=== PATIENT | male | born 1970 | race Caucasian/White ===

== ENCOUNTER 2016-11-09 18:09 | Emergency (ER) | payer SELFPAY ==
[~2016-11-09] VITALS: Ht 180.3 cm; Wt 101.0 kg
[~2016-11-09 18:09] MED LIST: ALBU6.7H INH; GUAI100S6 PO; LEVE500 PO; MEDR4PAK3 PO; OXCA600 PO; ZITH250T PO
[2016-11-09 18:13] VITALS: BP 141/87; PULSE 84; RESP 16; TEMP 98.3; O2SAT 97
[2016-11-09] MEDS ORDERED: LEVE500T8 PO (18:36)
[2016-11-09] MEDS ORDERED: OXCA600T PO (18:36)
--- NOTE | 2016-11-09 18:37 | PD ---
HPI Chief Complaint: Complaint Time Seen by Provider: 18:36 Travel History International Travel<30 days: No Contact w/Intl Traveler<30days: No Traveled to known affect area: No History of Present Illness HPI 46-year-old male with history of seizures, presents to the ER today because he states that he saw blood in his urine this morning and then had dark colored urine this afternoon. He states that has since cleared. He denies any dysuria , abdominal pain, fevers, or any other symptoms. Modifying Factors: None Associated Signs & Symptoms: Blood in the urine Risk Factors: None PFSH Past Medical History Blood Disorders: No Anxiety: Yes Depression: Yes Cancer: No Cardiovascular Problems: No Diminished Hearing: No Genitourinary: No Headaches: Yes (MIGRAINES) Immune Disorder: No Musculoskeletal: No Neurologic: Yes Reproductive: No Immunizations Current: Yes Migraines: Yes Seizures: Yes Tetanus Vaccination: Unknown Influenza Vaccination: No Past Surgical History Pacemaker: No Tonsillectomy: Yes Other Surgery: Yes (TONSIL REMOVED 1975) Social History Alcohol Use: No Tobacco Use: Yes (CIGARETTES AND SNUFF.) Substance Use: No Allergies-Medications (Allergen,Severity, Reaction): Coded Allergies: Vancomycin (Verified Allergy, Mild, Itching, 11/09/16) Reported Meds & Prescriptions Reported Meds & Active Scripts Active Reported Levetiracetam 500 Mg Tab 500 Mg PO BID Oxcarbazepine 600 Mg Tab 600 Mg PO BID Review of Systems Except as stated in HPI: all other systems reviewed are Neg Physical Exam Narrative GENERAL: Well-developed middle age white male patient currently none acute distress. Awake and oriented 3. SKIN: Focused skin assessment warm/dry. HEAD: Atraumatic. Normocephalic. EYES: Pupils equal and round. No scleral icterus. No injection or drainage. ENT: No nasal bleeding or discharge. Mucous membranes pink and moist. NECK: Trachea midline. No JVD. CARDIOVASCULAR: Regular rate and rhythm. No murmur appreciated. RESPIRATORY: No accessory muscle use. Clear to auscultation. Breath sounds equal bilaterally. GASTROINTESTINAL: Abdomen soft, non-tender, nondistended. Hepatic and splenic margins not palpable. MUSCULOSKELETAL: No obvious deformities. No clubbing. No cyanosis. No edema. NEUROLOGICAL: Awake and alert. No obvious cranial nerve deficits. Motor grossly within normal limits. Normal speech. PSYCHIATRIC: Appropriate mood and affect; insight and judgment normal. Data Data Last Documented VS Vital Signs Date Time Temp Pulse Resp B/P Pulse Ox O2 Delivery O2 Flow Rate FiO2 11/09/16 18:32 82 16 11/09/16 18:13 98.3 141/87 97 Orders Urinalysis - C+S If Indicated (11/09/16 18:26) Urine Culture (11/09/16 18:32) Labs Laboratory Tests Test 11/09/16 18:32 Urine Color YELLOW Urine Turbidity CLOUDY Urine pH 5.5 Urine Specific [place] 1.035 Urine Protein TRACE mg/dL Urine Glucose (UA) NEG mg/dL Urine Ketones NEG mg/dL Urine Occult Blood LARGE Urine Nitrite NEG Urine Bilirubin NEG Urine Leukocyte Esterase NEG Urine RBC 50-99 /hpf Urine WBC 9-14 /hpf Urine Squamous Epithelial 0-5 /hpf Cells Urine Mucus MANY /lpf Microscopic Urinalysis Comment CULTURE INDICATED MDM Medical Decision Making Medical Screen Exam Complete: Yes Emergency Medical Condition: Yes Medical Record Reviewed: Yes Differential Diagnosis Blood in the urinehematuria versus UTI Narrative Course UA shows blood and white blood cells indicative of UTI. My plan would be to treat him for his UTI and have him follow-up with primary care physician. Return for any worsening in symptoms as necessary. The plan has been discussed with the patient and he states understanding. Diagnosis Primary Impression: UTI (urinary tract infection) Med/Other Pt SpecificInfo: Prescription(s) given Scripts Sulfamethoxazole-Trimethoprim (Bactrim DS)800-160 Mg Tab1 Tab PO BID #14 TAB Ref 0 Prov:Celena Swain MD 11/09/16 Disposition: 01 DISCHARGE HOME Condition: Stable Celena Swain MD Nov 09, 2016 18:37
[2016-11-09 18:38] LABS: BLOOD, URINE LARGE (NEG); GLUCOSE,URINE NEG (NEG); KETONE, URINE NEG (NEG); NITRITE,URINE NEG (NEG); PH, URINE 5.5 (5.0-8.5)
[2016-11-09 18:56] LABS: URINE COLOR YELLOW (YELLW/STRAW)
[2016-11-09 18:57] LABS: MUCUS URINE MANY /lpf (OCC)
[2016-11-09 18:58] LABS: COMMENT (UR) CULTURE INDICATED; CULTURE IF INDICATED CULTURE INDICATED; SQUAMOUS EPITHELIAL CELL URINE 0-5 /hpf (0-5)
[2016-11-09] MEDS ORDERED: BACT800T5 PO (19:03)
[2016-11-09 19:47] VITALS: BP 136/76
[2016-11-10] MEDS ORDERED: IBUP800T23 PO (03:36)
== END 2016-11-09 19:50 | disposition home or self-care (01) ==
LOC: PHED 18:09
DX: N39.0 Urinary tract infection, site not specified (principal); R31.9 Hematuria, unspecified; Z72.0 Tobacco use
CPT/HCPCS: 81001; 87086; 99283

== ENCOUNTER 2016-11-10 00:52 | Emergency (ER) | payer SELFPAY ==
[~2016-11-10] VITALS: Ht 177.8 cm; Wt 102.6 kg
[~2016-11-10 00:52] MED LIST changes: +BACT800T5 PO; +LEVE500T8 PO; +OXCA600T PO
[2016-11-10 00:57] VITALS: BP 144/86; PULSE 86; RESP 22; TEMP 98.3; O2SAT 98
[2016-11-10] MEDS ORDERED: SODIUM CHLOR 0.9% 1000 ML INJ 1,000 ML IV ONE (02:06)
[2016-11-10] MEDS ORDERED: ONDANSETRON HCL 4 MG/2 ML VIAL IVP ONE (02:15)
[2016-11-10] MEDS ORDERED: KETOROLAC TROMETHAMINE 30 MG/ML (IVP) VIAL IVP ONE (02:15)
[2016-11-10] MEDS ORDERED: HYDROmorphone HCL PF 1 MG/ML VIAL IVS ONE (02:15)
[2016-11-10] MEDS ORDERED: SODIUM CHLORIDE 0.9% FLUSH 10 ML FLUSH IVF PRN (02:15)
[2016-11-10 02:41] LABS: BLOOD, URINE LARGE (NEG); GLUCOSE,URINE NEG (NEG); KETONE, URINE TRACE mg/dL (NEG); NITRITE,URINE NEG (NEG)
[2016-11-10 02:42] LABS: AUTOMATED NEUTROPHIL # 10.7 TH/MM3 (1.8-7.7); BASOPHIL # 0.1 TH/MM3 (0-0.2); BASOPHIL % 0.9 % (0.0-2.0); EOSINOPHIL % 0.3 % (0.0-4.0); HEMATOCRIT 43.9 % (39.0-51.0); LYMPH % 10.3 % (9.0-44.0); LYMPHOCYTE # 1.3 TH/MM3 (1.0-4.8); MEAN CELL VOLUME 83.2 FL (80.0-100.0); MEAN CORPUSCULAR HEMOGLOBIN 28.5 PG (27.0-34.0); MEAN CORPUSCULAR HGB CONC 34.3 % (32.0-36.0); MONO % 7.4 % (0.0-8.0); NEUT % 81.1 % (16.0-70.0); PLATELET COUNT 198 TH/MM3 (150-450); RED BLOOD COUNT 5.28 MIL/MM3 (4.50-5.90); RED CELL DISTRIBUTION WIDTH 12.8 % (11.6-17.2); WHITE BLOOD COUNT 13.1 TH/MM3 (4.0-11.0)
--- NOTE | 2016-11-10 02:42 | PD ---
HPI Chief Complaint: Complaint Time Seen by Provider: 01:58 Travel History International Travel<30 days: No Contact w/Intl Traveler<30days: No Traveled to known affect area: No History of Present Illness HPI The patient is a 46-year-old male that was seen on the previous shift yesterday , around 6:30 to 7 PM [facility]. At that time he had very little pain and denied any dysuria, fever, nausea, vomiting or diarrhea. He comes in tonight was severe right sided pain and a feeling that he cannot urinate. He urinates small amounts of urine and it is bloody. He feels like his bladder is distended and clinically it is not distended at all. He does not have any testicular swelling or pain. He was prescribed Bactrim DS and purchase the medication and took one tablet so far. The patient states he sweats profusely at work and has lost considerable weight and has a hard time avoiding dehydration at work. PFSH Past Medical History Blood Disorders: No Anxiety: Yes Depression: Yes Cancer: No Cardiovascular Problems: No Diminished Hearing: No Genitourinary: No Headaches: Yes (MIGRAINES) Immune Disorder: No Musculoskeletal: No Neurologic: Yes Reproductive: No Immunizations Current: Yes Migraines: Yes Seizures: Yes ?: Not Past Surgical History Pacemaker: No Tonsillectomy: Yes Other Surgery: Yes (TONSIL REMOVED 1975) Social History Alcohol Use: No Tobacco Use: Yes (CIGARETTES AND SNUFF.) Substance Use: No Allergies-Medications (Allergen,Severity, Reaction): Coded Allergies: Vancomycin (Verified Allergy, Mild, Itching, 11/10/16) Reported Meds & Prescriptions Reported Meds & Active Scripts Active Bactrim DS (Sulfamethoxazole-Trimethoprim) 800-160 Mg Tab 1 Tab PO BID Reported Levetiracetam 500 Mg Tab 500 Mg PO BID Oxcarbazepine 600 Mg Tab 600 Mg PO BID Review of Systems Except as stated in HPI: all other systems reviewed are Neg Physical Exam Narrative GENERAL: The patient is alert, oriented 3 in moderate to severe distress with his discomfort and right UVJ area discomfort. His vital signs show blood pressure 144/86 but otherwise are normal. SKIN: Focused skin assessment warm/dry. HEAD: Atraumatic. Normocephalic. EYES: Pupils equal and round. No scleral icterus. No injection or drainage. ENT: No nasal bleeding or discharge. Mucous membranes pink and moist. NECK: Trachea midline. No JVD. CARDIOVASCULAR: Regular rate and rhythm. No murmur appreciated. RESPIRATORY: No accessory muscle use. Clear to auscultation. Breath sounds equal bilaterally. GASTROINTESTINAL: Abdomen soft, with tenderness to direct palpation in the right suprapubic area, nondistended. Hepatic and splenic margins not palpable. The bladder does not appear to be distended clinically. MUSCULOSKELETAL: No obvious deformities. No clubbing. No cyanosis. No edema. NEUROLOGICAL: Awake and alert. No obvious cranial nerve deficits. Motor grossly within normal limits. Normal speech. PSYCHIATRIC: Appropriate mood and affect; insight and judgment normal. Data Data Last Documented VS Vital Signs Date Time Temp Pulse Resp B/P Pulse Ox O2 Delivery O2 Flow Rate FiO2 11/10/16 00:57 98.3 86 22 144/86 98 Orders Urinalysis - C+S If Indicated (11/10/16 02:06) Ct Abd/Pel W/O Iv Contrast (11/10/16 02:06) Ecg Monitoring (11/10/16 02:06) Iv Access Insert/Monitor (11/10/16 02:06) Ketorolac Inj (Toradol Inj) (11/10/16 02:15) Ondansetron Inj (Zofran Inj) (11/10/16 02:15) Sodium Chloride 0.9% Flush (Ns Flush) (11/10/16 02:15) Sodium Chlor 0.9% 1000 Ml Inj (Ns 1000 M (11/10/16 02:06) Hydromorphone Pf Inj (Dilaudid Pf Inj) (11/10/16 02:15) Complete Blood Count With Diff (11/10/16 02:28) Comprehensive Metabolic Panel (11/10/16 02:28) Labs Laboratory Tests Test 11/10/16 02:10 White Blood Count 13.1 TH/MM3 Red Blood Count 5.28 MIL/MM3 Hemoglobin 15.1 GM/DL Hematocrit 43.9 % Mean Corpuscular Volume 83.2 FL Mean Corpuscular Hemoglobin 28.5 PG Mean Corpuscular Hemoglobin 34.3 % Concent Red Cell Distribution Width 12.8 % Platelet Count 198 TH/MM3 Mean Platelet Volume 9.1 FL Neutrophils (%) (Auto) 81.1 % Lymphocytes (%) (Auto) 10.3 % Monocytes (%) (Auto) 7.4 % Eosinophils (%) (Auto) 0.3 % Basophils (%) (Auto) 0.9 % Neutrophils # (Auto) 10.7 TH/MM3 Lymphocytes # (Auto) 1.3 TH/MM3 Monocytes # (Auto) 1.0 TH/MM3 Eosinophils # (Auto) 0.0 TH/MM3 Basophils # (Auto) 0.1 TH/MM3 CBC Comment AUTO DIFF Differential Comment AUTO DIFF CONFIRMED Platelet Estimate NORMAL Platelet Morphology Comment NORMAL Red Cell Morphology Comment NORMAL Urine Color NELSON Urine Turbidity CLEAR Urine pH 6.0 Urine Specific [place] GREATER THAN 1.035 Urine Protein TRACE mg/dL Urine Glucose (UA) NEG mg/dL Urine Ketones TRACE mg/dL Urine Occult Blood LARGE Urine Nitrite NEG Urine Bilirubin NEG Urine Leukocyte Esterase NEG Urine RBC 20-24 /hpf Urine WBC 0-2 /hpf Urine Squamous Epithelial 0-5 /hpf Cells Urine Calcium Oxalate Crystals MOD /hpf Urine Bacteria NONE /hpf Microscopic Urinalysis Comment CULT NOT INDICATED Sodium Level 140 MEQ/L Potassium Level 3.6 MEQ/L Chloride Level 105 MEQ/L Carbon Dioxide Level 27.5 MEQ/L Anion Gap 8 MEQ/L Blood Urea Nitrogen 16 MG/DL Creatinine 1.10 MG/DL Estimat Glomerular Filtration 72 ML/MIN Rate Random Glucose 133 MG/DL Calcium Level 8.7 MG/DL Total Bilirubin 0.3 MG/DL Aspartate Amino Transf 15 U/L (AST/SGOT) Alanine Aminotransferase 21 U/L (ALT/SGPT) Alkaline Phosphatase 99 U/L Total Protein 7.5 GM/DL Albumin 4.0 GM/DL MDM Medical Decision Making Medical Screen Exam Complete: Yes Emergency Medical Condition: Yes Medical Record Reviewed: Yes Interpretation(s) The CBC shows a white count of 13,100 but is otherwise unremarkable. Incidentally noted is a hemoglobin of 15.1 and hematocrit of 43.9, there probably is some beginning hemoconcentration. The urine shows nelson color, clear to her bed at a, specific gravity of greater than 1.035, trace protein, trace ketones, large occult blood, 20-24 red cells with only 0-2 white cells and moderate calcium oxalate crystals and culture is not indicated. The complete metabolic profile shows a glucose of 133 but is otherwise normal. The CT abdomen/pelvis without IV contrast shows a 2 mm stone at the right ureterovesical junction. Differential Diagnosis Dehydration, right ureteral stone, urinary tract infection, prostatic urethral obstruction, other urethral obstruction Narrative Course The patient has dehydration with a right ureteral stone. Plan: He needs to increase his liquid intake and follow-up with a urologist should he have recurrent problems. He apparently has passed this stone. It is now 0333 and he feels no pain. He has no abdominal tenderness at the right UVJ. Diagnosis Primary Impression: Right ureteral calculus Additional Impression: Mild dehydration Additional Instructions: As we discussed, stay well-hydrated. Take Motrin regularly 800 mg 3 times daily if you get severe pain like a kidney stone. Follow-up with urology if the pain does not go away in 24 hours. Med/Other Pt SpecificInfo: Prescription(s) given Scripts Ibuprofen 800 Mg [id number] Mg PO TID #33 TAB Ref 0 Prov:Сергей Paz MD 11/10/16 Disposition: 01 DISCHARGE HOME Condition: Stable Сергей Paz MD Nov 10, 2016 02:42
[2016-11-10 02:48] LABS: CHLORIDE 105 MEQ/L (98-107); POTASSIUM 3.6 MEQ/L (3.5-5.1); SODIUM (NA) 140 MEQ/L (136-145); URINE COLOR AMBER (YELLW/STRAW); WBC, URINE 0-2 /hpf (0-5)
[2016-11-10 02:49] LABS: CALCIUM OXALATE CRYSTALS,URINE MOD /hpf; COMMENT (UR) CULT NOT INDICATED; COMMENT2 (UR) MUCOUS PRESENT; CULTURE IF INDICATED CULT NOT INDICATED; SQUAMOUS EPITHELIAL CELL URINE 0-5 /hpf (0-5)
[2016-11-10 02:51] LABS: ANION GAP 8 MEQ/L (5-15); BICARBONATE 27.5 MEQ/L (21.0-32.0); BLOOD UREA NITROGEN 16 MG/DL (7-18); HEMO FLAGS AUTO DIFF
[2016-11-10 02:54] LABS: ALT (GPT) 21 U/L (12-78); AST (GOT) 15 U/L (15-37); GLOMERULAR FILTRATION RATE 72 ML/MIN (>89)
[2016-11-10 02:56] LABS: TOTAL BILIRUBIN ADULT 0.3 MG/DL (0.2-1.0)
[2016-11-10 02:57] LABS: ALKALINE PHOSPHATASE 99 U/L (45-117)
[2016-11-10 03:07] LABS: PLATELET ESTIMATE SMEAR NORMAL (NORMAL); PLATELET MORPHOLOGY NORMAL (NORMAL); SCAN/DIFF AUTO DIFF CONFIRMED
--- NOTE | 2016-11-10 03:11 | RADRPT ---
EXAM DATE/TIME: 11/10/2016 02:23 [facility] COMPARISON: No previous studies available for comparison. INDICATIONS : UTI. Right flank pain. Urinary frequency. ORAL CONTRAST: No oral contrast ingested. RADIATION DOSE: 25.52 CTDIvol (mGy) MEDICAL HISTORY : None SURGICAL HISTORY : None. ENCOUNTER: Initial ACUITY: 1 day PAIN SCALE: 10/10 LOCATION: Right flank TECHNIQUE: Volumetric scanning of the abdomen and pelvis was performed. Using automated exposure control and ad justment of the mA and/or kV according to patient size, radiation dose was kept as low as reasonably achievable to obtain optimal diagnostic quality images. DICOM format image data is available electro nically for review and comparison. FINDINGS: Examination of the lung bases demonstrates no abnormality. No pleural fluid is identified. No pulmona ry nodules are present. The visualized portion of the liver and spleen are normal. There is degenerat harjeet disc disease at The adrenal glands are unremarkable. The left kidney is unremarkable. There is a 2 mm stone at the right uterovesical junction with mild right hydronephrosis and hydroureter. Examination of the pelvis demonstrates no evidence of free fluid or pelvic mass. No abnormally enlarg ed inguinal or retroperitoneal lymph nodes are present. The bladder is unremarkable. There is diverti culosis without evidence of diverticulitis. CONCLUSION: 1. 2 millimeter right ureterovesical junction stone Gutierrez Ordonez MD on November 10, 2016 at 3:07 Board Certified Radiologist. This report was verified electronically.
[2016-11-10] MEDS ORDERED: IBUP800T23 PO (03:36)
[2016-11-10 03:46] VITALS: BP 142/77
== END 2016-11-10 03:46 | disposition home or self-care (01) ==
LOC: PHED 00:52
DX: N20.1 Calculus of ureter (principal); E86.0 Dehydration
CPT/HCPCS: 74176; 80053; 81001; 85025; 96361; 96374; 96375; 99285; J1170; J1885; J2405; J7030

== ENCOUNTER 2016-11-13 16:05 | Emergency (ER) | payer SELFPAY ==
[~2016-11-13] VITALS: Ht 182.9 cm; Wt 101.9 kg
[~2016-11-13 16:05] MED LIST changes: -ALBU6.7H INH; -GUAI100S6 PO; +IBUP800T23 PO; -LEVE500 PO; -MEDR4PAK3 PO; -OXCA600 PO; -ZITH250T PO
[2016-11-13 16:11] VITALS: BP 149/74; PULSE 79; RESP 16; TEMP 98.3; O2SAT 98
[2016-11-13] MEDS ORDERED: SODIUM CHLOR 0.9% 1000 ML INJ 1,000 ML IV SCH (16:29)
[2016-11-13] MEDS ORDERED: ONDANSETRON HCL 4 MG/2 ML VIAL IVP ONE (16:30)
[2016-11-13] MEDS ORDERED: SODIUM CHLORIDE 0.9% FLUSH 10 ML FLUSH IV FLUSH PRN (16:30)
[2016-11-13] MEDS ORDERED: KETOROLAC TROMETHAMINE 30 MG/ML (IVP) VIAL IV PUSH ONE (16:30)
[2016-11-13 16:35] VITALS: O2SAT 98
[2016-11-13 16:40] LABS: AUTOMATED NEUTROPHIL # 6.9 TH/MM3 (1.8-7.7); BASOPHIL % 0.5 % (0.0-2.0); EOSINOPHIL # 0.1 TH/MM3 (0-0.4); EOSINOPHIL % 0.8 % (0.0-4.0); HEMATOCRIT 44.6 % (39.0-51.0); HEMO FLAGS DIFF FINAL; LYMPH % 21.5 % (9.0-44.0); LYMPHOCYTE # 2.1 TH/MM3 (1.0-4.8); MEAN CELL VOLUME 84.3 FL (80.0-100.0); MEAN CORPUSCULAR HEMOGLOBIN 27.9 PG (27.0-34.0); MEAN CORPUSCULAR HGB CONC 33.1 % (32.0-36.0); MONO % 9.1 % (0.0-8.0); NEUT % 68.1 % (16.0-70.0); PLATELET COUNT 207 TH/MM3 (150-450); RED BLOOD COUNT 5.29 MIL/MM3 (4.50-5.90); RED CELL DISTRIBUTION WIDTH 13.5 % (11.6-17.2)
[2016-11-13 16:45] LABS: BLOOD, URINE LARGE (NEG); GLUCOSE,URINE NEG (NEG); KETONE, URINE NEG (NEG); NITRITE,URINE NEG (NEG); PH, URINE 6.5 (5.0-8.5)
[2016-11-13 16:49] LABS: CHLORIDE 107 MEQ/L (98-107); POTASSIUM 3.5 MEQ/L (3.5-5.1); SODIUM (NA) 141 MEQ/L (136-145)
[2016-11-13 16:51] LABS: URINE COLOR YELLOW (YELLW/STRAW)
[2016-11-13 16:52] LABS: ANION GAP 8 MEQ/L (5-15); BICARBONATE 25.8 MEQ/L (21.0-32.0); COMMENT (UR) CULTURE INDICATED; CULTURE IF INDICATED CULTURE INDICATED; MUCUS URINE MANY /lpf (OCC); RBC, URINE 100-200 /hpf (0-3); SQUAMOUS EPITHELIAL CELL URINE 0-5 /hpf (0-5)
[2016-11-13 16:53] LABS: BLOOD UREA NITROGEN 11 MG/DL (7-18)
[2016-11-13 16:56] LABS: ALT (GPT) 18 U/L (12-78); AST (GOT) 13 U/L (15-37); GLOMERULAR FILTRATION RATE 72 ML/MIN (>89)
[2016-11-13 16:57] LABS: TOTAL BILIRUBIN ADULT 0.3 MG/DL (0.2-1.0)
[2016-11-13 16:58] LABS: ALKALINE PHOSPHATASE 81 U/L (45-117)
--- NOTE | 2016-11-13 17:11 | RADRPT ---
EXAM DATE/TIME: 11/13/2016 16:34 [facility] COMPARISON: CT ABDOMEN & PELVIS W/O CONTRAST, November 10, 2016, 2:23. INDICATIONS : Abdominal pain, evaluate for renal calculi. MEDICAL HISTORY : None. SURGICAL HISTORY : None. ENCOUNTER: Initial ACUITY: 1 day PAIN SCORE: 8/10 LOCATION: Right flank abdomen. FINDINGS: Supine view of the abdomen was performed. The abdominal bowel gas pattern is normal. No abnormal ma sses, calcifications, or organomegaly is seen. No renal or ureteral calculi observed. 2 calcification s overlie the pelvis which when correlated with the prior CT related to venous calcifications. The os seous structures are unremarkable. CONCLUSION: 1. No discrete renal or ureteral calculi observed on this exam. The right UVJ stone is not clearly se en. CT is a more specific and sensitive evaluation for this. Matteo Desai Jr., MD on November 13, 2016 at 17:02 Board Certified Radiologist. This report was verified electronically.
--- NOTE | 2016-11-13 17:34 | PD ---
HPI Chief Complaint: Flank/Kidney Pain Time Seen by Provider: 16:21 Travel History International Travel<30 days: No Contact w/Intl Traveler<30days: No Traveled to known affect area: No History of Present Illness HPI 46-year-old male seen in the emergency department 3 days ago and diagnosed with a 2 mm right UVJ stone, here for evaluation of right flank pain and nausea. The patient states that for the last 3 days he has been feeling well until around noon today. Pain feels very similar to when he was diagnosed with a kidney stone 3 days ago. Pain is mainly in his right flank and radiates to his lower abdomen/suprapubic region, described as sharp and pressure-like. Patient also has some left flank pain as well. He is having some dysuria and decreased urination. Pain is associated with nausea but no vomiting. PFSH Past Medical History Blood Disorders: No Anxiety: Yes Depression: Yes Cancer: No Cardiovascular Problems: No Diminished Hearing: No Genitourinary: No Headaches: Yes (MIGRAINES) Immune Disorder: No Musculoskeletal: No Neurologic: Yes Reproductive: No Immunizations Current: Yes Migraines: Yes Seizures: Yes Tetanus Vaccination: > 5 Years Influenza Vaccination: No Past Surgical History Pacemaker: No Tonsillectomy: Yes Other Surgery: Yes (TONSIL REMOVED 1975) Social History Alcohol Use: No Tobacco Use: Yes ("Off and on") Substance Use: No Allergies-Medications (Allergen,Severity, Reaction): Coded Allergies: Vancomycin (Verified Allergy, Mild, Itching, 11/13/16) Reported Meds & Prescriptions Reported Meds & Active Scripts Active Ibuprofen 800 Mg Tab 800 Mg PO TID Bactrim DS (Sulfamethoxazole-Trimethoprim) 800-160 Mg Tab 1 Tab PO BID Reported Levetiracetam 500 Mg Tab 500 Mg PO BID Oxcarbazepine 600 Mg Tab 600 Mg PO BID Review of Systems Except as stated in HPI: all other systems reviewed are Neg Physical Exam Narrative GENERAL: Well-developed, well-nourished, comfortable, no apparent distress. SKIN: Focused skin assessment warm/dry. No rash. HEAD: Atraumatic. Normocephalic. EYES: Pupils equal and round. No scleral icterus. No injection or drainage. ENT: Mucous membranes pink and moist. NECK: Trachea midline. No JVD. CARDIOVASCULAR: Regular rate and rhythm. No murmur appreciated. RESPIRATORY: No accessory muscle use. Clear to auscultation. Breath sounds equal bilaterally. GASTROINTESTINAL: Abdomen soft, non-tender, nondistended. MUSCULOSKELETAL: No obvious deformities. No clubbing. No cyanosis. No edema. Mild right CVA tenderness. No left CVA tenderness. No midline vertebral step- off or tenderness. NEUROLOGICAL: Awake and alert. No obvious cranial nerve deficits. Motor grossly within normal limits. Normal speech. PSYCHIATRIC: Appropriate mood and affect; insight and judgment normal. Data Data Last Documented VS Vital Signs Date Time Temp Pulse Resp B/P Pulse Ox O2 Delivery O2 Flow Rate FiO2 11/13/16 16:35 98 Room Air 11/13/16 16:11 98.3 79 16 149/74 Orders Complete Blood Count With Diff (11/13/16 16:29) Comprehensive Metabolic Panel (11/13/16 16:29) Urinalysis - C+S If Indicated (11/13/16 16:29) Iv Access Insert/Monitor (11/13/16 16:29) Ecg Monitoring (11/13/16 16:29) Oximetry (11/13/16 16:29) Ondansetron Inj (Zofran Inj) (11/13/16 16:30) Sodium Chlor 0.9% 1000 Ml Inj (Ns 1000 M (11/13/16 16:29) Sodium Chloride 0.9% Flush (Ns Flush) (11/13/16 16:30) Ketorolac Inj (Toradol Inj) (11/13/16 16:30) Abdomen, Kub Only (11/13/16 ) Urine Culture (11/13/16 16:35) Labs Laboratory Tests Test 11/13/16 16:35 White Blood Count 10.0 TH/MM3 Red Blood Count 5.29 MIL/MM3 Hemoglobin 14.8 GM/DL Hematocrit 44.6 % Mean Corpuscular Volume 84.3 FL Mean Corpuscular Hemoglobin 27.9 PG Mean Corpuscular Hemoglobin 33.1 % Concent Red Cell Distribution Width 13.5 % Platelet Count 207 TH/MM3 Mean Platelet Volume 8.4 FL Neutrophils (%) (Auto) 68.1 % Lymphocytes (%) (Auto) 21.5 % Monocytes (%) (Auto) 9.1 % Eosinophils (%) (Auto) 0.8 % Basophils (%) (Auto) 0.5 % Neutrophils # (Auto) 6.9 TH/MM3 Lymphocytes # (Auto) 2.1 TH/MM3 Monocytes # (Auto) 0.9 TH/MM3 Eosinophils # (Auto) 0.1 TH/MM3 Basophils # (Auto) 0.0 TH/MM3 CBC Comment DIFF FINAL Differential Comment Urine Color YELLOW Urine Turbidity SLIGHT Urine pH 6.5 Urine Specific [place] 1.035 Urine Protein 30 mg/dL Urine Glucose (UA) NEG mg/dL Urine Ketones NEG mg/dL Urine Occult Blood LARGE Urine Nitrite NEG Urine Bilirubin NEG Urine Leukocyte Esterase NEG Urine RBC 100-200 /hpf Urine WBC 9-14 /hpf Urine Squamous Epithelial 0-5 /hpf Cells Urine Mucus MANY /lpf Microscopic Urinalysis Comment CULTURE INDICATED Sodium Level 141 MEQ/L Potassium Level 3.5 MEQ/L Chloride Level 107 MEQ/L Carbon Dioxide Level 25.8 MEQ/L Anion Gap 8 MEQ/L Blood Urea Nitrogen 11 MG/DL Creatinine 1.10 MG/DL Estimat Glomerular Filtration 72 ML/MIN Rate Random Glucose 98 MG/DL Calcium Level 8.9 MG/DL Total Bilirubin 0.3 MG/DL Aspartate Amino Transf 13 U/L (AST/SGOT) Alanine Aminotransferase 18 U/L (ALT/SGPT) Alkaline Phosphatase 81 U/L Total Protein 6.9 GM/DL Albumin 3.7 GM/DL [facility] Medical Decision Making Medical Screen Exam Complete: Yes Emergency Medical Condition: Yes Medical Record Reviewed: Yes Differential Diagnosis Nephrolithiasis, ureterolithiasis, pyelonephritis, UTI, cystitis, musculoskeletal pain, colitis, diverticulitis, appendicitis Narrative Course Vital signs show heart rate 79, blood pressure 149/74, pulse ox 98% on room air , oral temperature 98.2F. CBC is unremarkable. CMP is unremarkable. UA shows large occult blood, 100-200 RBCs, 9-14 wbc's, negative nitrites, negative leukocyte esterase. KUB: No discrete renal or ureteral calculi observed on this exam. The right UVJ stone is not clearly seen. CT isn't more specific and sensitive evaluation for this. Patient was given a dose of IV Toradol, liter of normal saline IV, and IV Zofran , and on reassessment he is feeling improved. There are no peritoneal signs on his abdominal exam. I do not believe that there is an acute intra-abdominal/ surgical process to warrant imaging at this time. Patient agrees with this and states that his pain feels exactly the same as when he was diagnosed with a ureteral stone 3 days ago. Plan at this time is to discharge patient home with a prescription for Flomax, pain medication, and antiemetics, and have him follow up with urology as an outpatient. Patient informed on when to return to the emergency department. He verbalizes understanding and agreement with plan. Diagnosis Primary Impression: Ureterolithiasis Additional Impression: Hematuria Qualified Code: R31.9 - Hematuria, unspecified type Referrals: Devin Stanton MD 3 days Urologist Primary Care Physician 3 days Additional Instructions: Follow-up with a primary care physician this week. Follow-up with urologist Dr. Stanton or urologist of your choice this week. Return to the emergency department for worsening symptoms or any other concerns. Scripts Ondansetron (Zofran)4 Mg Tab4 Mg PO Q8HR PRN (NAUSEA OR VOMITING) #15 TAB Ref 0 Prov:Manuel Irizarry MD 11/13/16 Oxycodone-Acetaminophen (Percocet)5-325 mg Tab1 Tab PO Q6H PRN (PAIN) #10 TAB Ref 0 Prov:Manuel Irizarry MD 11/13/16 Tamsulosin (Flomax)0.4 Mg Cap0.4 Mg PO HS #10 CAP Ref 0 Prov:Manuel Irizarry MD 11/13/16 Disposition: 01 DISCHARGE HOME Condition: Stable Manuel Irizarry MD Nov 13, 2016 17:33
[2016-11-13] MEDS ORDERED: ZOFR4TAB PO (17:43)
[2016-11-13] MEDS ORDERED: PERC5TAB12 PO (17:43)
[2016-11-13] MEDS ORDERED: TAMS5CAP PO (17:43)
[2016-11-13] MEDS ORDERED: TAMSULOSIN HCL 0.4 MG CAP PO ONE (17:45)
[2016-11-13 17:55] VITALS: BP 154/82; PULSE 69; RESP 16; O2SAT 98
== END 2016-11-13 18:00 | disposition home or self-care (01) ==
LOC: PHED 16:05
DX: N20.1 Calculus of ureter (principal); R11.0 Nausea; Z72.0 Tobacco use
CPT/HCPCS: 74000; 80053; 81001; 85025; 87086; 96361; 96374; 96375; 99284; J1885; J2405; J7030

== ENCOUNTER 2017-02-08 09:43 | Emergency (ER) | payer SELFPAY ==
[~2017-02-08] VITALS: Ht 182.9 cm; Wt 101.0 kg
[~2017-02-08 09:43] MED LIST changes: +PERC5TAB12 PO; +TAMS5CAP PO; +ZOFR4TAB PO
[2017-02-08 09:48] VITALS: BP 153/90; PULSE 87; RESP 16; TEMP 98.9; O2SAT 97
--- NOTE | 2017-02-08 10:19 | PD ---
HPI Chief Complaint: Seizure Time Seen by Provider: 10:03 Travel History International Travel<30 days: No Contact w/Intl Traveler<30days: No Traveled to known affect area: No History of Present Illness HPI This 46-year-old male had a sudden onset of tremors. He has a history of seizures the seizures started about 6 years ago. He had extensive testing and apparently the EEG showed a focus but there is nothing evident on MRI. He is on Keppra and Trileptal. He says that he takes his medications quite faithful. He had onset of a mild tremor with the onset of his seizures. His last seizure was about a year and a half ago. He had a fairly sudden onset of tremors this morning which has subsided considerably. He does not drink alcohol. There is been no seizure activity. No tremors is worse on the right. His head was also affected. There was no associated pain PFSH Past Medical History Blood Disorders: No Anxiety: Yes Depression: Yes Cancer: No Cardiovascular Problems: No Diminished Hearing: No Genitourinary: No Headaches: Yes (MIGRAINES) Immune Disorder: No Kidney Stones: Yes Musculoskeletal: No Neurologic: Yes Reproductive: No Immunizations Current: Yes Migraines: Yes Seizures: Yes Tetanus Vaccination: > 5 Years Influenza Vaccination: No Past Surgical History Pacemaker: No Tonsillectomy: Yes Other Surgery: Yes (TONSIL REMOVED 1975) Social History Alcohol Use: No Tobacco Use: Yes ("Off and on") Substance Use: No Allergies-Medications (Allergen,Severity, Reaction): Coded Allergies: vancomycin (Unverified Allergy, Mild, Itching, 02/08/17) Reported Meds & Prescriptions Reported Meds & Active Scripts Active Reported Levetiracetam 500 Mg Tab 500 Mg PO BID Oxcarbazepine 600 Mg Tab 600 Mg PO BID Review of Systems General / Constitutional: No: Fever, Chills Eyes: No: Diploplia, Blurred Vision HENT: No: Headaches, Vertigo Cardiovascular: No: Chest Pain or Discomfort, Palpitations Respiratory: No: Cough, Shortness of Breath Gastrointestinal: No: Nausea, Vomiting Genitourinary: No: Urgency, Frequency Skin: No Rash, No Itching Neurologic: No: Weakness, Dizziness Endocrine: No: Cold Intolerance Hematologic/Lymphatic: No: Easy Bruising Physical Exam Narrative GENERAL: Well-developed male SKIN: Focused skin assessment warm/dry. HEAD: Atraumatic. Normocephalic. EYES: Pupils equal and round. No scleral icterus. No injection or drainage. ENT: No nasal bleeding or discharge. Mucous membranes pink and moist. NECK: Trachea midline. No JVD. CARDIOVASCULAR: Regular rate and rhythm. No murmur appreciated. RESPIRATORY: No accessory muscle use. Clear to auscultation. Breath sounds equal bilaterally. GASTROINTESTINAL: Abdomen soft, non-tender, nondistended. Hepatic and splenic margins not palpable. MUSCULOSKELETAL: No obvious deformities. No clubbing. No cyanosis. No edema. NEUROLOGICAL: Awake and alert. No obvious cranial nerve deficits. Motor grossly within normal limits. Normal speech. There is a fine tremor of both hands, the right is worse than the left PSYCHIATRIC: Appropriate mood and affect; insight and judgment normal. Data Data Last Documented VS Vital Signs Date Time Temp Pulse Resp B/P (MAP) Pulse Ox O2 Delivery O2 Flow Rate FiO2 02/08/17 10:26 98 Nasal Cannula 2.00 02/08/17 10:08 73 02/08/17 09:48 98.9 16 153/90 (111) Orders Orders Complete Blood Count With Diff (02/08/17 10:16) Basic Metabolic Panel (Bmp) (02/08/17 10:16) Magnesium (Mg) (02/08/17 10:16) Labs Laboratory Tests Test 02/08/17 10:20 White Blood Count 9.7 TH/MM3 Red Blood Count 5.48 MIL/MM3 Hemoglobin 15.9 GM/DL Hematocrit 46.7 % Mean Corpuscular Volume 85.3 FL Mean Corpuscular Hemoglobin 29.0 PG Mean Corpuscular Hemoglobin Concent 34.0 % Red Cell Distribution Width 12.8 % Platelet Count 216 TH/MM3 Mean Platelet Volume 8.6 FL Neutrophils (%) (Auto) 67.8 % Lymphocytes (%) (Auto) 22.5 % Monocytes (%) (Auto) 7.7 % Eosinophils (%) (Auto) 1.0 % Basophils (%) (Auto) 1.0 % Neutrophils # (Auto) 6.6 TH/MM3 Lymphocytes # (Auto) 2.2 TH/MM3 Monocytes # (Auto) 0.7 TH/MM3 Eosinophils # (Auto) 0.1 TH/MM3 Basophils # (Auto) 0.1 TH/MM3 CBC Comment DIFF FINAL Differential Comment Blood Urea Nitrogen 9 MG/DL Creatinine 0.82 MG/DL Random Glucose 96 MG/DL Calcium Level 8.6 MG/DL Magnesium Level 1.9 MG/DL Sodium Level 140 MEQ/L Potassium Level 3.6 MEQ/L Chloride Level 104 MEQ/L Carbon Dioxide Level 27.7 MEQ/L Anion Gap 8 MEQ/L Estimat Glomerular Filtration Rate 101 ML/MIN MDM Medical Decision Making Medical Screen Exam Complete: Yes Emergency Medical Condition: Yes Medical Record Reviewed: Yes Differential Diagnosis Differential includes tremor, seizure disorder, electrolyte abnormality Narrative Course Lab work is unremarkable. Patient is stable for discharge. I will prescribe some Ativan for him to use at home if his seizures are severe. He is follow-up with his own medical doctor. He recently moved here from [place] and has not yet seen his primary care physician. I will renew his seizure medicine Diagnosis Primary Impression: Tremor Additional Impression: Seizure disorder Scripts Lorazepam (Ativan) 1 Mg Tab 1 MG PO Q8H Y for tremor, #15 TAB 0 Refills Prov: Carter Dunlap MD 02/08/17 Disposition: DISCHARGE HOME Condition: Stable Carter Dunlap MD Feb 08, 2017 10:19
[2017-02-08 10:31] LABS: AUTOMATED NEUTROPHIL # 6.6 TH/MM3 (1.8-7.7); BASOPHIL # 0.1 TH/MM3 (0-0.2); EOSINOPHIL # 0.1 TH/MM3 (0-0.4); HEMATOCRIT 46.7 % (39.0-51.0); HEMO FLAGS DIFF FINAL; LYMPH % 22.5 % (9.0-44.0); LYMPHOCYTE # 2.2 TH/MM3 (1.0-4.8); MEAN CELL VOLUME 85.3 FL (80.0-100.0); MONO % 7.7 % (0.0-8.0); NEUT % 67.8 % (16.0-70.0); PLATELET COUNT 216 TH/MM3 (150-450); RED BLOOD COUNT 5.48 MIL/MM3 (4.50-5.90); RED CELL DISTRIBUTION WIDTH 12.8 % (11.6-17.2); WHITE BLOOD COUNT 9.7 TH/MM3 (4.0-11.0)
[2017-02-08 10:40] LABS: POTASSIUM 3.6 MEQ/L (3.5-5.1)
[2017-02-08 10:43] LABS: BICARBONATE 27.7 MEQ/L (21.0-32.0); MAGNESIUM 1.9 MG/DL (1.5-2.5)
[2017-02-08] MEDS ORDERED: LORA-474 PO (11:07)
[2017-02-08] MEDS ORDERED: OXCA600T PO (11:08)
[2017-02-08] MEDS ORDERED: LEVE500T8 PO (11:08)
[2017-02-08 11:18] VITALS: BP 123/84; PULSE 75; RESP 16; O2SAT 95
== END 2017-02-08 11:31 | disposition home or self-care (01) ==
LOC: PHED 09:43
DX: R25.1 Tremor, unspecified (principal); G40.909 Epilepsy, unspecified, not intractable, without status epilepticus
CPT/HCPCS: 80048; 83735; 85025; 99284